=== PATIENT | female | born 1980 | race Caucasian/White ===

== ENCOUNTER 2022-02-15 21:34 | Emergency (ER) | payer MEDICAID ==
[~2022-02-15] VITALS: Ht 167.6 cm; Wt 70.8 kg
[2022-02-15 21:57] VITALS: BP 122/81
[2022-02-15] MEDS ORDERED: KETOROLAC 60 MG VIAL (30MG/ML) IM ONE (22:00)
[2022-02-15] MEDS ORDERED: NAPR-1180 PO (22:46)
== END 2022-02-15 22:54 | disposition home or self-care (01) ==
LOC: EDH 21:34
DX: S80.02XA Contusion of left knee, initial encounter (principal); Z88.1 Allergy status to other antibiotic agents; Z88.2 Allergy status to sulfonamides; Z88.5 Allergy status to narcotic agent; Z88.8 Allergy status to other drugs, medicaments and biological substances; Z90.49 Acquired absence of other specified parts of digestive tract; Z79.1 Long term (current) use of non-steroidal anti-inflammatories (NSAID); X58.XXXA Exposure to other specified factors, initial encounter; Y93.89 Activity, other specified; Y92.89 Other specified places as the place of occurrence of the external cause; Y99.8 Other external cause status
CPT/HCPCS: 99283; 73562; 96372; J1885

== ENCOUNTER 2022-07-08 16:47 | Emergency (ER) | payer MEDICAID ==
[~2022-07-08] VITALS: Ht 167.6 cm; Wt 63.5 kg
[~2022-07-08 16:47] MED LIST: NAPR-1180 PO
[2022-07-08 17:33] LABS: APPEARANCE,URINE CLEAR (CLEAR); BILIRUBIN,URINE NEGATIVE (NEGATIVE); COLOR,URINE YELLOW (YELLOW); GLUCOSE, URINE (UA) NEGATIVE (NEGATIVE); KETONES,URINE NEGATIVE (NEGATIVE); LEUKOCYTE ESTERASE ,URINE NEGATIVE Leu/uL (NEGATIVE); NITRATE,URINE NEGATIVE (NEGATIVE); OCCULT BLOOD,URINE NEGATIVE (NEGATIVE); PROTEIN,URINE 10 mg/dL (NEGATIVE); UROBILINOGEN,URINE 3 mg/dL (0.2-1.0)
[2022-07-08 17:38] LABS: AMPHET/METH SCREEN,URINE NEGATIVE (NEGATIVE); BARBITURATE SCREEN, URINE NEGATIVE (NEGATIVE); BENZODIAZEPINES SCREEN,URINE NEGATIVE (NEGATIVE); CANNABINOID SCREEN,URINE POSITIVE (NEGATIVE); COCAINE SCREEN,URINE NEGATIVE (NEGATIVE); OPIATE SCREEN,URINE NEGATIVE (NEGATIVE); PHENCYCLIDINE SCREEN,URINE NEGATIVE (NEGATIVE)
[2022-07-08 17:40] LABS: BASOPHILS % (AUTO) 0.7 % (0.0-5.0); EOSINOPHILS % (AUTO) 1.5 % (0.0-8.0); HEMATOCRIT 43.9 % (36-48); LYMPHOCYTES % (AUTO) 36.6 % (21.0-51.0); MEAN CORPUSCULAR HEMOGLOBIN 32.6 pg (27.0-33.0); MEAN CORPUSCULAR HGB CONC 34.6 g/dL (32.0-36.0); MEAN CORPUSCULAR VOLUME 94.2 fL (79-99); MONOCYTES % (AUTO) 10.7 % (3.0-13.0); PLATELET COUNT (AUTO) 345 K/uL (130-400); RED BLOOD CELL COUNT(AUTO) 4.66 MIL/uL (4.00-5.50); RED CELL DISTRIBUTION WIDTH 11.9 % (11.0-15.5)
[2022-07-08 17:41] LABS: BACTERIA,URINE RARE /HPF (None Seen); MUCUS,URINE RARE LPF (None Seen); SQUAMOUS EPITHELIAL CELL,UR MOD /HPF (0-2)
[2022-07-08 17:47] LABS: CREATININE 0.9 mg/dL (0.5-1.5)
[2022-07-08 17:52] LABS: ALBUMIN 4.8 g/dL (3.5-5.0); TOTAL PROTEIN, SERUM 8.4 g/dL (6.0-8.3)
[2022-07-08 17:58] LABS: HCG,QUALITATIVE URINE NEGATIVE (NEGATIVE)
[2022-07-08] MEDS ORDERED: ONDANSETRON 4MG INJ IVP ONE (18:00)
[2022-07-08] MEDS ORDERED: FAMOTIDINE 20MG VIAL IV ONE (18:00)
[2022-07-08] MEDS ORDERED: MORPHINE 4 MG SYG IVP ONE (18:00)
[2022-07-08] MEDS ORDERED: 0.9%NACL 1000ML 1,000 ML IV ONE (18:00)
[2022-07-08] MEDS ORDERED: IOHEXOL 350 MG/ML 100ML INFUS..BTL IV ONE (18:01)
[2022-07-08] MEDS ORDERED: BACI1CAP6 PO (19:19)
[2022-07-08] MEDS ORDERED: ONDA4TAB10 PO (19:19)
[2022-07-08] MEDS ORDERED: DICY20TA2 PO (19:19)
[2022-07-08] MEDS ORDERED: FAMO-136 PO (19:19)
[2022-07-08 19:24] VITALS: BP 115/68
== END 2022-07-08 19:54 | disposition home or self-care (01) ==
LOC: EDH 16:47
DX: K52.9 Noninfective gastroenteritis and colitis, unspecified (principal); Z20.822 Contact with and (suspected) exposure to COVID-19; R10.31 Right lower quadrant pain; Z90.710 Acquired absence of both cervix and uterus; Z90.49 Acquired absence of other specified parts of digestive tract; Z88.2 Allergy status to sulfonamides; Z88.8 Allergy status to other drugs, medicaments and biological substances; Z79.1 Long term (current) use of non-steroidal anti-inflammatories (NSAID)
CPT/HCPCS: 99285; 74177; 96374; 87635; 96361; 96375 ×2; 80053; 80305; 85025; 87804 ×2; 81001; 81025; 36415; C9803; J7030; J2405; J2270; Q9967; S0028; J3490

== ENCOUNTER 2022-09-30 05:50 | Emergency (ER) | payer MEDICAID ==
[~2022-09-30] VITALS: Ht 167.6 cm; Wt 66.7 kg
[~2022-09-30 05:50] MED LIST changes: +BACI1CAP6 PO; +DICY20TA2 PO; +FAMO-136 PO; +ONDA4TAB10 PO
[2022-09-30] MEDS ORDERED: 0.9%NACL 1000ML 1,000 ML IV ONE (06:00)
[2022-09-30] MEDS ORDERED: ONDANSETRON 4MG INJ IVP ONE (06:00)
[2022-09-30 06:18] LABS: APPEARANCE,URINE CLOUDY (CLEAR); BASOPHILS % (AUTO) 0.4 % (0.0-5.0); BILIRUBIN,URINE NEGATIVE (NEGATIVE); COLOR,URINE YELLOW (YELLOW); EOSINOPHILS % (AUTO) 1.4 % (0.0-8.0); GLUCOSE, URINE (UA) NEGATIVE (NEGATIVE); HEMATOCRIT 47.9 % (36-48); KETONES,URINE NEGATIVE (NEGATIVE); LEUKOCYTE ESTERASE ,URINE NEGATIVE Leu/uL (NEGATIVE); LYMPHOCYTES % (AUTO) 18.4 % (21.0-51.0); MEAN CORPUSCULAR HEMOGLOBIN 32.7 pg (27.0-33.0); MEAN CORPUSCULAR HGB CONC 34.4 g/dL (32.0-36.0); MEAN CORPUSCULAR VOLUME 94.9 fL (79-99); MONOCYTES % (AUTO) 3.5 % (3.0-13.0); NEUTROPHILS % (AUTO) 75.9 % (40.0-77.0); NITRATE,URINE NEGATIVE (NEGATIVE); OCCULT BLOOD,URINE NEGATIVE (NEGATIVE); PLATELET COUNT (AUTO) 286 K/uL (130-400); PROTEIN,URINE 30 mg/dL (NEGATIVE); RED BLOOD CELL COUNT(AUTO) 5.05 MIL/uL (4.00-5.50); RED CELL DISTRIBUTION WIDTH 12.2 % (11.0-15.5)
[2022-09-30] MEDS ORDERED: MORPHINE 4 MG SYG IVP ONE (06:30)
[2022-09-30 06:33] LABS: ALBUMIN 4.5 g/dL (3.5-5.0); POTASSIUM 3.9 mmol/L (3.5-5.1); TOTAL PROTEIN, SERUM 8.4 g/dL (6.0-8.3)
[2022-09-30 07:03] LABS: BACTERIA,URINE RARE /HPF (None Seen); MUCUS,URINE RARE LPF (None Seen); SQUAMOUS EPITHELIAL CELL,UR MANY /HPF (0-2)
[2022-09-30 08:03] LABS: AMPHET/METH SCREEN,URINE NEGATIVE (NEGATIVE); BARBITURATE SCREEN, URINE NEGATIVE (NEGATIVE); BENZODIAZEPINES SCREEN,URINE NEGATIVE (NEGATIVE); CANNABINOID SCREEN,URINE POSITIVE (NEGATIVE); COCAINE SCREEN,URINE NEGATIVE (NEGATIVE); OPIATE SCREEN,URINE NEGATIVE (NEGATIVE); PHENCYCLIDINE SCREEN,URINE NEGATIVE (NEGATIVE)
[2022-09-30] MEDS ORDERED: CEPH500B PO (08:40)
[2022-09-30] MEDS ORDERED: PANT40TA55 PO (08:40)
[2022-09-30 08:50] VITALS: BP 150/77
[2022-09-30] MEDS ORDERED: ONDA4TAB10 PO (08:52)
== END 2022-09-30 08:55 | disposition home or self-care (01) ==
LOC: EDH 05:50
DX: F12.10 Cannabis abuse, uncomplicated (principal); N30.90 Cystitis, unspecified without hematuria; Z90.49 Acquired absence of other specified parts of digestive tract; Z98.890 Other specified postprocedural states; Z88.1 Allergy status to other antibiotic agents; Z88.2 Allergy status to sulfonamides; Z88.5 Allergy status to narcotic agent; Z88.8 Allergy status to other drugs, medicaments and biological substances; Z91.040 Latex allergy status
CPT/HCPCS: 99285; 74176; 96374; 96361; 96375; 80053; 80305; 83690; 85025; 36415; 81001; J7030; J2405; J2270